=== PATIENT | male | born 1955 ===

== ENCOUNTER 2018-02-20 08:22 | Day surgery (SDC) | payer MEDICARE ==
[2018-02-20 09:43] VITALS: BMI 27.4
[2018-02-20] MEDS ORDERED: Lactated Ringer's 1,000 ML IV ONE (09:44)
[2018-02-20] MEDS ORDERED: Propofol 10 mg/ml Inj (20 ML) ONE (11:06)
[2018-02-20] MEDS ORDERED: Midazolam 2 MG/2 ML VIAL ONE (11:06)
[2018-02-20 11:40] VITALS: PULSE 68
[2018-02-20 11:56] VITALS: BP 104/68; RESP 16; TEMP 97; O2SAT 99
== END 2018-02-20 13:10 | disposition home or self-care (01) ==
LOC: H.ENDO 08:22
PROVIDERS: ATTEND Internal Medicine Gastroenterology
DX: R10.9 Unspecified abdominal pain (principal); I25.10 Atherosclerotic heart disease of native coronary artery without angina pectoris; E11.9 Type 2 diabetes mellitus without complications; F03.90 Unspecified dementia, unspecified severity, without behavioral disturbance, psychotic disturbance, mood disturbance, and anxiety; G40.909 Epilepsy, unspecified, not intractable, without status epilepticus; K64.8 Other hemorrhoids; K57.30 Diverticulosis of large intestine without perforation or abscess without bleeding
CPT/HCPCS: 45378; 82948; J2250; J2704; J7120